=== PATIENT | male | born 1940 | race Caucasian/White ===

== ENCOUNTER 2023-06-11 14:38 | Inpatient (IN) | payer OTHER ==
[~2023-06-11] VITALS: Ht 172.7 cm; Wt 88.5 kg
[~2023-06-11 14:38] MED LIST: AMOCLA875 PO; BUPR100 PO; ESCI10 PO
[2023-06-11 16:40] LABS: BASOPHILS ABSOLUTE AUTO 0.04 K/mm3 (0.00-0.23); BASOPHILS PERCENT AUTO 0 % (0-2); EOSINOPHILS ABSOLUTE AUTO 0.11 K/mm3 (0.00-0.68); EOSINOPHILS PERCENT AUTO 1 % (0-6); Hematocrit 35.4 % (37.0-53.0); Hemoglobin 11.7 g/dL (13.5-17.5); IMMATURE GRAN ABSOLUTE AUTO 0.03 K/mm3 (0.00-0.10); IMMATURE GRAN PERCENT AUTO 0 % (0-1); LYMPHOCYTES ABSOLUTE AUTO 1.47 K/mm3 (0.84-5.20); LYMPHOCYTES PERCENT AUTO 11 % (21-46); MONOCYTES ABSOLUTE AUTO 0.92 K/mm3 (0.16-1.47); MONOCYTES PERCENT AUTO 7 % (4-13); Mean Corpuscular HGB 30.6 pg (26.0-34.0); Mean Corpuscular HGB Conc 33.1 g/dL (31.5-36.5); Mean Corpuscular Volume 93 fL (80-100); Mean Platelet Volume 9.7 fL (9.1-12.4); NEUTROPHILS ABSOLUTE AUTO 11.07 K/mm3 (1.96-9.15); NEUTROPHILS PERCENT AUTO 81 % (41-73); Platelet Count 299 K/mm3 (150-400); RDW Coefficient Variation 12.9 % (11.7-14.2); Red Blood Cell Count 3.82 M/mm3 (4.30-5.90); White Blood Cell Count 13.64 K/mm3 (4.00-11.30)
[2023-06-11 16:53] LABS: Albumin, Blood 2.9 g/dL (3.4-5.0); Albumin/Globulin Ratio 0.8 (0.8-1.8); Bilirubin, Total 0.4 mg/dL (0.1-1.0); Calcium, Blood 8.8 mg/dL (8.5-10.1); Globulin, Blood 3.8 g/dL (2.2-4.0); Potassium, Blood 3.5 mmol/L (3.5-5.5); Total Protein, Blood 6.7 g/dL (6.4-8.2)
[2023-06-11] MEDS ORDERED: AMLO5 PO (20:22)
[2023-06-11] MEDS ORDERED: ALBU90OI INH (20:24)
[2023-06-11 21:04] VITALS: BP 150/69
--- NOTE | 2023-06-12 04:04 | NUR ---
SHIFT SUMMARY/ADMISSION NOTE ASSUMED CARE OF PATIENT FROM ED AT 2100. A/Ox4, ORIENTED TO UNIT, ROOM AND CALL LIGHT FUNCTIONS. PATIENT ABLE TO STAND/PIVOT FROM GURNEY TO BED WITH SBA. C/O PAIN TO RIGHT FOOT, MEDICATED PER EMAR. I&D WAS RECENTLY PERFORMED WHILE IN ED, COVERED WITH BULKY DRESSING TO RIGHT FOOT, C/D/I. ENCOURAGED PATIENT TO CALL FIRST BEFORE GETTING UP AND TO USE FWW INSTEAD OF CANE FOR BETTER BALANCE/SAFETY, PATIENT VERBALIZED UNDERSTANDING. NO ACUTE CHANGES NOTED OVERNIGHT, ASLEEP THROUGHOUT MOST OF SHIFT. BED LOCKED AND IN LOWEST POSITION, CALL LIGHT WITHIN REACH.
[2023-06-12 04:24] VITALS: BP 133/59
[2023-06-12 05:33] LABS: BASOPHILS ABSOLUTE AUTO 0.04 K/mm3 (0.00-0.23); BASOPHILS PERCENT AUTO 0 % (0-2); EOSINOPHILS ABSOLUTE AUTO 0.13 K/mm3 (0.00-0.68); EOSINOPHILS PERCENT AUTO 1 % (0-6); Hematocrit 34.3 % (37.0-53.0); IMMATURE GRAN ABSOLUTE AUTO 0.06 K/mm3 (0.00-0.10); IMMATURE GRAN PERCENT AUTO 1 % (0-1); LYMPHOCYTES ABSOLUTE AUTO 1.62 K/mm3 (0.84-5.20); LYMPHOCYTES PERCENT AUTO 13 % (21-46); MONOCYTES ABSOLUTE AUTO 1.08 K/mm3 (0.16-1.47); MONOCYTES PERCENT AUTO 9 % (4-13); Mean Corpuscular HGB 30.4 pg (26.0-34.0); Mean Corpuscular HGB Conc 32.1 g/dL (31.5-36.5); Mean Corpuscular Volume 95 fL (80-100); Mean Platelet Volume 9.6 fL (9.1-12.4); NEUTROPHILS ABSOLUTE AUTO 9.84 K/mm3 (1.96-9.15); NEUTROPHILS PERCENT AUTO 77 % (41-73); Platelet Count 271 K/mm3 (150-400); RDW Coefficient Variation 13.1 % (11.7-14.2); RDW Standard Deviation 45.4 fL (35.1-46.3); Red Blood Cell Count 3.62 M/mm3 (4.30-5.90); White Blood Cell Count 12.77 K/mm3 (4.00-11.30)
[2023-06-12 05:57] LABS: Bun/Creatinine Ratio 21.8 (12.0-20.0); Calcium, Blood 8.1 mg/dL (8.5-10.1); Creatinine, Blood 1.19 mg/dL (0.60-1.20)
[2023-06-12 07:17] VITALS: BP 145/71
[2023-06-12 12:13] LABS: Percent Saturation 7.5 % (20.0-50.0)
[2023-06-12 15:33] VITALS: BP 160/72
--- NOTE | 2023-06-12 16:13 | NUR ---
THE PATIENT IS A&O X4, PLEASENT TO VISIT WITH AND FOLLOWS COMMANDS. THE PATIENT HAS SPENT THE SHIFT SLEEPING, WHEN NOT INTERRUPTED. THE PATIENT HAD A SCAN OF HIS RIGHT LEG TO RIGHT FOOT VENIS BLOOD SUPPLY TO CHECK FOR PROBLEMS. THE PATIENT IS SLEEPING AT THIS TIME, I WILL CONTINUE TO MONITOR.
[2023-06-12 19:35] VITALS: BP 148/77
[2023-06-13 02:20] VITALS: BP 145/72
--- NOTE | 2023-06-13 05:42 | NUR ---
SHIFT SUMMARY PT IS A&0 X4, CALM AND COOPERATIVE WITH CARE. PT IS INDEPENDENT WHEN USING THE URINAL. PT HAS BANDAGE TO RIGHT FOOT C/D/I. NO ACUTE EVENTS OVERNIGHT. VSS. NS AT 125 ML/HR. BED KEPT IN THE LOWEST POSITION WITH CALL LIGHT WITHIN REACH. WILL CONTINUE TO MONITOR.
[2023-06-13 07:43] VITALS: BP 156/83
[2023-06-13 07:49] LABS: BASOPHILS ABSOLUTE AUTO 0.04 K/mm3 (0.00-0.23); BASOPHILS PERCENT AUTO 0 % (0-2); EOSINOPHILS ABSOLUTE AUTO 0.13 K/mm3 (0.00-0.68); EOSINOPHILS PERCENT AUTO 1 % (0-6); Hematocrit 31.4 % (37.0-53.0); Hemoglobin 10.5 g/dL (13.5-17.5); IMMATURE GRAN ABSOLUTE AUTO 0.04 K/mm3 (0.00-0.10); IMMATURE GRAN PERCENT AUTO 0 % (0-1); LYMPHOCYTES ABSOLUTE AUTO 1.25 K/mm3 (0.84-5.20); LYMPHOCYTES PERCENT AUTO 10 % (21-46); MONOCYTES ABSOLUTE AUTO 0.99 K/mm3 (0.16-1.47); MONOCYTES PERCENT AUTO 8 % (4-13); Mean Corpuscular HGB 30.9 pg (26.0-34.0); Mean Corpuscular HGB Conc 33.4 g/dL (31.5-36.5); Mean Corpuscular Volume 92 fL (80-100); Mean Platelet Volume 9.4 fL (9.1-12.4); NEUTROPHILS ABSOLUTE AUTO 10.12 K/mm3 (1.96-9.15); NEUTROPHILS PERCENT AUTO 81 % (41-73); Platelet Count 244 K/mm3 (150-400); RDW Coefficient Variation 12.7 % (11.7-14.2); White Blood Cell Count 12.57 K/mm3 (4.00-11.30)
[2023-06-13 08:08] LABS: Vancomycin, Trough 11.8 ug/mL (5.0-10.0)
[2023-06-13 08:22] LABS: Bun/Creatinine Ratio 21.3 (12.0-20.0); Calcium, Blood 7.8 mg/dL (8.5-10.1); Creatinine, Blood 0.94 mg/dL (0.60-1.20); Potassium, Blood 3.8 mmol/L (3.5-5.5)
[2023-06-13 15:26] VITALS: BP 166/80
--- NOTE | 2023-06-13 16:46 | NUR ---
PT AOX4 AND COOPERATIVE OF CARE. PT RESTING IN BED MOST OF THE DAY. PT WAS UP FOR A BIT AT THE SIDE OF THE BED FOR BREAKFAST. PT CALL APPROPRIATELY AND IS A STANDBY WITH WALKER TO RESTOOM. NO DISTRESS NOTED AT THIS TIME WILL CONTINUE TO MONITOR.
[2023-06-13 20:18] VITALS: BP 137/81
[2023-06-14 04:36] VITALS: BP 159/85
--- NOTE | 2023-06-14 04:56 | NUR ---
SHIFT SUMMARY PATIENT DENIES PAIN, NAUSEA, AND SHORTNESS OF BREATH. PATIENT IS A&O X4, CALLS APPROPRIATELY. PATIENT HAD I&D PERFORMED IN ER ON 06/11. DRESSING IS C/D/I. PATIENT IS A SBA, BUT USES URINAL INDEPENDENTLY. PATIENT EAGER TO GET HOME, MOTIVATED TO GET BETTER. PATIENT SLEPT MOST OF SHIFT WITHOUT ISSUE. PATIENT IS PLEASANT AND COOPERATIVE WITH CARE.
[2023-06-14 07:53] VITALS: BP 166/85
[2023-06-14 08:26] LABS: BASOPHILS ABSOLUTE AUTO 0.03 K/mm3 (0.00-0.23); BASOPHILS PERCENT AUTO 0 % (0-2); EOSINOPHILS ABSOLUTE AUTO 0.23 K/mm3 (0.00-0.68); EOSINOPHILS PERCENT AUTO 2 % (0-6); Hematocrit 33.8 % (37.0-53.0); Hemoglobin 11.3 g/dL (13.5-17.5); IMMATURE GRAN ABSOLUTE AUTO 0.02 K/mm3 (0.00-0.10); IMMATURE GRAN PERCENT AUTO 0 % (0-1); LYMPHOCYTES ABSOLUTE AUTO 1.04 K/mm3 (0.84-5.20); LYMPHOCYTES PERCENT AUTO 10 % (21-46); MONOCYTES ABSOLUTE AUTO 0.77 K/mm3 (0.16-1.47); MONOCYTES PERCENT AUTO 7 % (4-13); Mean Corpuscular HGB 30.7 pg (26.0-34.0); Mean Corpuscular HGB Conc 33.4 g/dL (31.5-36.5); Mean Corpuscular Volume 92 fL (80-100); Mean Platelet Volume 9.5 fL (9.1-12.4); NEUTROPHILS ABSOLUTE AUTO 8.63 K/mm3 (1.96-9.15); NEUTROPHILS PERCENT AUTO 81 % (41-73); Platelet Count 279 K/mm3 (150-400); RDW Coefficient Variation 12.6 % (11.7-14.2); RDW Standard Deviation 42.5 fL (35.1-46.3); Red Blood Cell Count 3.68 M/mm3 (4.30-5.90); White Blood Cell Count 10.72 K/mm3 (4.00-11.30)
[2023-06-14 08:45] LABS: Albumin, Blood 2.6 g/dL (3.4-5.0); Anion Gap 3 mmol/L (6-16); Blood Urea Nitrogen 14 mg/dL (8-24); Bun/Creatinine Ratio 14.8 (12.0-20.0); CO2, Blood 32 mmol/L (21-32); Calcium, Blood 8.4 mg/dL (8.5-10.1); Chloride, Blood 104 mmol/L (98-108); Creatinine, Blood 0.95 mg/dL (0.60-1.20); Glomerular Filtration Rate 79 (60-); Glucose, Blood 98 mg/dL (70-99); Phosphorus, Blood 2.2 mg/dL (2.5-4.9); Sodium, Blood 139 mmol/L (136-145); Vancomycin, Trough 18.3 ug/mL (5.0-10.0)
[2023-06-14 15:35] VITALS: BP 152/90
--- NOTE | 2023-06-14 16:49 | NUR ---
NO ACUTE CHANGES PT AOX4. PT 1 ASSIST TO RESTROOM WITH WALKER. PICTURES PLACED IN CHART FOR R FOOT. DR MILLAN REQUESTED CONSULT FOR DR MERIDA. R FOOT HAS ABCESS ON INFERER SIDE. R FOOT WAS REWRAPPED. APPEARS TO NEED ATTENTION FROM ELEMENTARY CLASSROOM TEACHER. LEAKING RED FLUID R FOOT PAIN TREATE PER EMAR. NO DISTRESS NOTED AT THIS TIME. CALL LIGHT WITHIN REACH. WILL CONTINUE TO MONITOR.
[2023-06-14 19:54] VITALS: BP 123/83
[2023-06-15] VITALS (17 sets, daily range): BP systolic 126–178; BP diastolic 64–135
[2023-06-15 05:39] LABS: Albumin, Blood 2.3 g/dL (3.4-5.0); Anion Gap 4 mmol/L (6-16); Blood Urea Nitrogen 17 mg/dL (8-24); Bun/Creatinine Ratio 17.8 (12.0-20.0); CO2, Blood 29 mmol/L (21-32); Calcium, Blood 8.1 mg/dL (8.5-10.1); Chloride, Blood 105 mmol/L (98-108); Creatinine, Blood 0.96 mg/dL (0.60-1.20); Glomerular Filtration Rate 78 (60-); Glucose, Blood 107 mg/dL (70-99); Phosphorus, Blood 2.8 mg/dL (2.5-4.9); Potassium, Blood 3.9 mmol/L (3.5-5.5); Sodium, Blood 138 mmol/L (136-145)
--- NOTE | 2023-06-15 07:26 | NUR ---
SHIFT SUMMARY PATIENT WITH FEVER AT BEGINNING OF SHIFT. DR HOANG NOTIFIED, ORDER FOR TYLENOL, PER EMAR. FOLLOW UP TEMPS 98.8. NOT OTHER ACUTE EVENTS DURING SHIFT. BED IN LOW POSITION. CALL LIGHT IN REACH.
--- NOTE | 2023-06-15 12:20 | NUR ---
PT TO DAY SURGERY FROM MEDICAL FLOOR FOR SURGICAL MANAGEMENT OF RIGHT FOOT ABSESS. HISTORY AND CHART REVIEWED. PLAN OF CARE DISCUSSED. PT STATES FOOT PAIN IS 5/10 AT THIS TIME.
--- NOTE | 2023-06-15 12:32 | NUR ---
PT TO DAY SURGERY WITH 20G IV TO LEFT FA
--- NOTE | 2023-06-15 17:28 | NUR ---
PT AOX4 AND COOPERATIVE OF CARE.PT HAD IND OF R FOOT ARRIVED BACK TO ROOM AT 1500. PT CAME BACK ON TELE DUE TO SUDDEN AFIB AFTER PROCEDURE. 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 PT RESTING COMFORTABLE NO DISTRESS NOTED. CALL LIGHT WITHIN REACH.
[2023-06-16 02:05] VITALS: BP 142/77
--- NOTE | 2023-06-16 05:22 | NUR ---
SUMMARY: PT A/OX4, CALLS APPROPRIATELY TO SPECIFY NEEDS AND IS PLEASANT AND COOPERATE W/CARE. HE USES URINAL AD MARIA E STANDING AT EOB BUT IS SBA FOR DISTANCE. HE'S POST OP DAY 1 FOR I&D OF R.FOOT ABSESS, DX REMAINS C/D/I AND PERCOCET RECEIVED PRN FOR TOLERABLE RELIEF OF RELATED PAIN. IV ABX PROVIDED THEN SL'D. SHE REMAINS S.DENAE/S.ARRHYTHMIA ON TELE AT 50'S-60'S BPM. NO ACUTE CHANGES, VSS/AFEBRILE. WCTM AND REPORT TO DAY RN.
[2023-06-16 05:46] VITALS: BP 150/81
--- NOTE | 2023-06-16 08:58 | NUR ---
ASSUMED CARE OF PT. PT A&OX4 AND CALLS APPROPRIATELY. VSS. KELLEY AT BEDSIDE TO DISCUSS PLAN OF CARE AND ORDERED A PT CONSULT. NO ACUTE EVENTS AT THIS TIME, NO CONCERNS OR QUESTIONS FROM PT.
[2023-06-16 09:41] LABS: Vancomycin, Trough 24.5 ug/mL (5.0-10.0)
[2023-06-16 09:50] VITALS: BP 145/63
[2023-06-16 16:00] VITALS: BP 144/87
--- NOTE | 2023-06-16 17:30 | NUR ---
SHIFT SUMMARY PT A&OX4. VSS. PT AMBULATED WITH PT TODAY TO THE DOORWAY WITH A FWW. PT RECEIVED A NEW PERIPHERAL IV IN RIGHT FOREARM, PREVIOUS IV NO LONGER PATENT AND WAS REMOVED. NO ACUTE EVENTS OCCURED DURING MY SHIFT, NO CONCERNS OR QUESTIONS FROM PT AT THIS TIME.
[2023-06-16 19:26] VITALS: BP 127/56
[2023-06-17 01:48] VITALS: BP 145/67
[2023-06-17 05:35] LABS: Vancomycin, Random 12.3 ug/mL
--- NOTE | 2023-06-17 06:20 | NUR ---
SUMMARY: PT A/OX4, CALLS APPRORIATELY TO SPECIFY NEEDS AND IS PLEASANT AND COOPERATIVE W/CARE. HE STANDS AT EOB AD MARIA E TO USE URINAL AND IS AWARE OF LIMITATIONS. PT IS POST OP DAY 2 FOR I&D OF R.FOOT CELLULITIS, DX REMAINS C/D/I. PERCOCET RECEIVED PRN FOR TOLERABLE RELIEF OF PAIN AND IV ABX PROVIDED PER EMAR. HE FLUCTUATES BETWEEN NSR-A.FIB AT 70'S-80'S BPM, OCC TACHY AT 130'S WHEN PAINFUL. NO ACUTE CHANGES, VSS/AFEBRILE. PROBABLE D/C TODAY. WCTM AND REPORT TO DAY RN.
[2023-06-17 07:19] VITALS: BP 144/77
--- NOTE | 2023-06-17 11:34 | NUR ---
PT TO RECEIVE DRESSING CHANGE. PAIN MEDICATION GIVEN PRIOR TO PROCEDURE TO REDUCE DISCOMFORT AND PAIN.
[2023-06-17] MEDS ORDERED: Percocet 5-3251 EACH PO (11:39)
[2023-06-17] MEDS ORDERED: Celexa20 MG PO (11:39)
[2023-06-17] MEDS ORDERED: VISBIOME 112.51 EACH PO (11:40)
[2023-06-17] MEDS ORDERED: AMOCLA875 PO (11:40)
--- NOTE | 2023-06-17 12:37 | NUR ---
WOUND CARE PROVIDED, DRESSING ON FOOT CHANGED. PT TOLERATED POORLY, EXPERIENCING PAIN RATED AN 8-9/10. MEDICATED PRIOR TO DRESSING CHANGE TO REDUCE DISCOMFORT. PT COOPERATIVE WITH CARE THROUGH THE DISCOMFORT. ALGINATE GENTLY PACKED IN WOUND, GAUZE DRESSING AND ABSORBANT DRESSING APPLIED, WRAPPED UP WITH MAKENZIE BANDAGE WRAP. NO NUMBNESS/TINGLING FELT. PT ABLE TO MOVE TOES. CAP REFILL LESS THAN 3 SECONDS. PULSE PALPATED PRIOR TO BANDAGING.
--- NOTE | 2023-06-17 14:55 | NUR ---
SHIFT SUMMARY PT A&OX4, VSS. PT MEDICALLY STABLE FOR DISCHARGE, DISCHARGED TODAY. PT RECEIVED WOUND CARE PRIOR TO DISCHARGE. PT TRANSPORTED TO RIDE VIA W/C. ALL PERSONAL BELONGINGS OUT OF ROOM AND WITH PT. NO ACUTE EVENTS DURING MY SHIFT. NO QUESTIONS OR CONCERNS FROM PT AT THIS TIME.
== END 2023-06-17 14:17 | disposition home health service (06) | DRG 872 ==
LOC: ER 14:38 → MEDS 20:19 → ENPENDDIS 06-17 11:08 → MEDS 06-17 14:17
PROVIDERS: Emergency Medicine; Family Medicine; Internal Medicine; Nurse Practitioner Acute Care; Podiatrist Foot & Ankle Surgery; ADMIT Student in an Organized Health Care Education/Training Program
PROC: 3E03329 Introduction of Other Anti-infective into Peripheral Vein, Percutaneous Approach (ICD-10-PCS; 2023-06-11)
PROC: 0HBMXZZ Excision of Right Foot Skin, External Approach (ICD-10-PCS; 2023-06-15)
PROC: 0J9Q0ZZ Drainage of Right Foot Subcutaneous Tissue and Fascia, Open Approach (ICD-10-PCS; principal; 2023-06-15 12:30)
DX: A41.9 Sepsis, unspecified organism (principal); L03.115 Cellulitis of right lower limb; L02.611 Cutaneous abscess of right foot; F32.A Depression, unspecified; I10 Essential (primary) hypertension; D64.9 Anemia, unspecified; D72.829 Elevated white blood cell count, unspecified; R54 Age-related physical debility; E11.9 Type 2 diabetes mellitus without complications; E83.39 Other disorders of phosphorus metabolism; Z79.899 Other long term (current) drug therapy; Z68.29 Body mass index [BMI] 29.0-29.9, adult
CPT/HCPCS: 10060; 36415; 80048; 80053; 80069; 80202; 82728; 82947; 83540; 83550; 85025; 87040; 87070; 87075; 87205; 93922; 96365-59; 96367-59; 96375-59; 97110; 97161; 97530; 99284-25; A9270; J0690; J0696; J1650; J2001; J2270; J2405; J2704; J3370; J7030; J7050; J7120